=== PATIENT | female | born 1955 | race African-American/Black ===

== ENCOUNTER 2016-08-28 11:56 | Inpatient (IN) ==
[2016-08-28] MEDS ORDERED: SODIUM CHLORIDE 0.9% 1,000 ML IV STA (12:18)
[2016-08-28] MEDS ORDERED: ONDANSETRON 4 MG/2 ML VIAL IV STA (12:26)
[2016-08-28] MEDS ORDERED: HYDROmorphone 2 MG/1 ML VIAL IV STA (12:26)
--- NOTE | 2016-08-28 12:46 | XRay Report ---
XR abdomen 2V Indication: Abdominal pain. Abdomen 3 views: No small bowel dilatation. Some stool projects over the colon. No evidence of free air. No abnormal calcifications or masses. There are some phleboliths in the pelvis. Surgical clips right midabdomen noted. Impression: No acute pathology identified. PROCEDURE INTERPRETED AT [facility] DEPARTMENT OF RADIOLOGY Final Report Signed by: Henrique Terrell M.D.
--- NOTE | 2016-08-28 12:47 | XRay Report ---
XR chest 1V portable Indication: Abdominal pain. Chest one view: Comparison 10/28/2015. The heart size and mediastinal contour are normal. The lungs and pleural spaces are clear. Bones are unremarkable. Impression: Negative chest. PROCEDURE INTERPRETED AT [facility] DEPARTMENT OF RADIOLOGY Final Report Signed by: Henrique Terrell M.D.
[2016-08-28 12:52] LABS: Basophils % 0.6 % (0.0-0.8); Eosinophils # 0.1 10*3/uL (0.0-0.87); Eosinophils % 1.1 % (0.00-10.9); Hematocrit 34.7 VOL% (35.7-47.0); Hemoglobin 12.2 GM/DL (12.0-16.0); Immature Granulocytes % 0.4 %; Immature Granulocytes Absolute 0.02 #; Lymphocytes # 1.9 10*3/uL (1.4-4.0); Lymphocytes % 35.4 % (21.3-54.2); Mean Corpuscular HGB Conc 35.2 GM/DL (32-36); Mean Corpuscular Hemoglobin 30 PG (27-34); Mean Corpuscular Volume 83.8 FL (87-102); Mean Platelet Volume 8.9 FL (9.6-12.0); Monocytes # 0.4 10*3/uL (0.11-0.8); Monocytes % 6.7 % (1.7-12.7); Neutrophils # 2.9 10*3/uL (1.4-7.4); Neutrophils % 55.8 % (38.7-73.9); Platelet Count 235 T/CUMM (130-400); Red Blood Count 4.14 MC/CUMM (3.8-5.5); Red Cell Distribution Width 12.3 % (9.3-17.3); White Blood Count 5.2 T/CUMM (4-12)
[2016-08-28 12:57] LABS: Apearance,Urine CLEAR (Clear); Bilirubin,Urine Negative (Negative); Blood, Urine Negative (Negative); Glucose,Urine (UA) Negative (Negative); Ketones,Urine Negative (Negative); Mucus,Urine Occasional /LPF (Occasional); Nitrite,Urine Negative (Negative); Protein,Urine Negative; RBC,Urine 2 /HPF (0-4); Squamous Epithelial Cell,Urine Occasional /HPF (0-10); Urine Color Yellow (Yellow); Urine Specific Gravity 1.008 (1.001-1.035); Urine Urobilinogen < 2.0 EU/DL (0.2-1.0); WBC,Urine <1 /HPF (0-6)
--- NOTE | 2016-08-28 13:01 | EKG Report ---
Stationary ECG Study [facility] ER Test Date: 08/28/2016 12:59:36 PM Pat Name: WESLEY FORMAN Department: Room: Gender: F Rehab Nurse: : 1955 Requested by: Emery Ulrich Order Number: [id number] Reading MD: TIM ROBIN Intervals [place] Rate: 59 P: 83 TN: 190 QRS: 82 QRSD: 90 T: 46 QT: 412 QTc: 411 Interpretive Statements SINUS RHYTHM Electronically Signed On 08-29-16 08:05:04 CDT by TIM ROBIN [email or web address]
--- NOTE | 2016-08-28 13:02 | Emergency Department Note ---
Davion Barrientos Brooke, am scribing for, and in the presence of, Emery Wen MD 12:32 . Bettye Barrientos James D, MD, personally performed the services described in this documentation, ascribed by Kelsy Ricardo in my presence, and it is both accurate and complete . Arrival - Arrival Chief Complaint: Abdominal / Flank Pain Stated Complaint: fell bad/nauseated/morrell/faint/chills ED Nursing Triage Note: C/O Having nausea, + diarrrhea, + abdeomen pain today., + chills., states all this started this am when woke up this am ., pain worse on the right side of the upper abdomen Mode of Arrival: Ambulatory Limitations: No Limitations Source: Patient, RN Notes Reviewed Time Seen by Provider: 08/28/16 12:17 - History of Present Illness HPI Narrative: Patient is a 61 year old female who presents to the ED with c/o abdominal pain, nausea, vomiting, and diarrhea. Patient says these symptoms started, suddenly, around 0740 this morning. The abdominal pain is located across the top and she says there is sometimes a burning sensation that goes up into her chest. The abdominal pain is worsened with movement. Her last bowel movement was this morning and she denies any melena. She has vomited two times and denies any blood in the vomit. Patient also complains of having chills but denies any fever or dysuria. She has PMHx of CHF, HTN, NJ, TIA, dyslipidemia, NIDDM, bronchitis, COPD, GERD, and back/neck problems. Patient says she had surgery, at [facility], to remove something from her liver and kidney.The pain she is having today does not feel like the pain she had with the NJ. Patient's Primary Care Provider is Dr. Luciano. She is a smoker and says a pack of cigarettes will last about two days. Patient does not drink alcohol. Onset (ago): hour(s) (5) Allergies/Adverse Reactions: Allergies Allergy/AdvReac Type Severity Reaction Status Date / Time Penicillins Allergy RASH Verified 08/28/16 12:02 Sulfa (Sulfonamide Allergy RASH Verified 08/28/16 12:02 Antibiotics) Home Medications: Home Medications Medication Instructions Recorded Confirmed Type Albuterol Sulfate [Ventolin HFA] 2 puff INH Q4H PRN 10/28/15 10/28/15 History Fluticasone/Salmeterol [Advair Hfa 8 gm IH Q4H PRN 10/28/15 10/28/15 History 230-21 Mcg Inhaler] Omeprazole [Prilosec] 20 mg PO BID 10/28/15 10/28/15 History Oxybutynin Xl [Ditropan Xl] 10 mg PO DAILY 10/28/15 10/28/15 History Propranolol Tab [Inderal Tab] 40 mg PO BID 10/28/15 10/28/15 History Tolterodine LA [Detrol LA] 4 mg PO BID 10/28/15 10/28/15 History cephALEXin [Keflex] 500 mg PO Q8HR #30 capsule 06/06/16 Rx predniSONE TAB [PredniSONE] 10 mg PO DAILY #5 tablet 06/06/16 Rx Review of System - Review of System 12 point system: reviewed and no additional remarkable complaints except as stated - Review of System Constitutional: Present: chills. Absent: fever Respiratory: Absent: respiratory distress Gastrointestinal: Present: abdominal pain (upper), nausea, vomiting, diarrhea. Absent: hematemesis, melena Genitourinary female: Absent: dysuria Skin: Absent: rash Medical,Surgical,& Family Hx - Medical History Cardio: History of: CHF, Hypertension, NJ (1.5 year ago) Neurology: History of: TIA No history of: Seizures Endocrine: History of: Diabetes Mellitus (NIDDM) (diet controlled), Dyslipidemia Respiratory: History of: Bronchitis, COPD Gastrointestinal: History of: GERD Musculoskeletal: History of: Back/Neck Problems, Musculoskeletal Problems (mass on her spine) - Surgical History HEENT Surgeries: Surgical HX of: Tonsilectomy & Adenoidectomy Reproductive Surgeries: Surgical HX of;: Breast Surgery, Hysterectomy - Family History Family History: Reports;: Family Cancer, Family Diabetes, Family Heart Disease, Family Hypertension, Family Stroke - Social History Smoking Status: Smoker, status unknown Frequency of Alcohol Use: None Type of Drug Use: None Exam Vital Signs: Vital Signs Temperature 97.4 F L 08/28/16 11:59 Pulse Rate 16 L 08/28/16 11:59 Respiratory Rate 16 08/28/16 11:59 Blood Pressure 168/59 08/28/16 11:59 O2 Sat by Pulse Oximetry 97 08/28/16 11:59 GENERAL: This is a well-nourished well-developed black female in no apparent distress. VITAL SIGNS: Reviewed HEENT: Head is atraumatic and normocephalic. Pupils are equal round react to light. Extraocular movements are intact. Oropharynx is benign with moist mucous membranes. NECK: Neck is soft and supple without tenderness. There are no masses. There is no lymphadenopathy. LUNGS: Lungs are clear to auscultation. Chest rises symmetrically. There is no chest wall tenderness. CV: Heart is regular rate and rhythm without murmurs rubs or gallops. ABDOMEN: Tender to palpation epigastrium without rebound or guarding. There are no abdominal abnormal masses palpated. There is no organomegaly. Bowel sounds are present and active. SKIN: Skin is warm and dry. No rash. EXTREMITIES: Patient has full range of motion without tenderness. There is no pedal edema. NEUROLOGIC: Awake alert and oriented 4. Cranial nerves II through XII are grossly intact. Motor is 5 over 5 in all extremities bilaterally. Course - Consultations Consultation #1: Discussed with Dr. Zafar ORDOÑEZ. Patient will be admitted to his service. Time: 16:00 Results - Labs CBC & BMP: 08/28/16 12:18 08/28/16 12:18 Lab Results: I have reviewed the patients labs - EKG EKG results: interpreted by ERMD - Impressions EKG: Sinus bradycardia with a rate of 59, normal ST-T waves, normal axis. - Diagnostic Findings Procedure: Abdominal x-ray: image reviewed by me (No free air, gas in the rectum , nonspecific gas pattern.), Chest x-ray: image reviewed by me (No infiltrates, no pleural effusions. No cardiomegaly.), Ultrasound: report reviewed by me ( Gallbladder ultrasound: Cholelithiasis with positive Holt sign consistent with acute cholecystitis.) Disposition Clinical Impression: Epigastric pain, Acute cholecystitis Case discussed with: patient Disposition: Still a Patient Condition: Stable
[2016-08-28 13:10] LABS: Alanine Aminotransferase 17 U/L (13-56); Albumin 3.6 G/DL (3.4-5.0); Alkaline Phosphatase 115 U/L (45-117); Aspartate Amino Transferase 13 U/L (0-37); Bilirubin,Total < 0.39 MG/DL (0.2-1.0); Blood Urea Nitrogen 7 MG/DL (7-18); Calcium 8.9 MG/DL (8.5-10.1); Glucose 94 MG/DL (74-106); Osmolality,Calculated 283.8 MOS/KG (273-304); Sodium 144 MMOL/L (136-145); Total Protein 6.7 G/DL (6.4-8.3)
[2016-08-28] MEDS ORDERED: HYDROmorphone 2 MG/1 ML VIAL ONE (13:20)
[2016-08-28] MEDS ORDERED: ONDANSETRON 4 MG/2 ML VIAL ONE (13:20)
--- NOTE | 2016-08-28 14:20 | CT Report ---
CT abdomen pelvis w con Indication: Epigastric abdominal pain. CT ABDOMEN AND PELVIS WITH CONTRAST DLP: 901 mGy*cm. One or more of the following dose reduction techniques was used: Automated exposure control, adjustment of the mA and/or kV according the patient size, or use of iterative reconstruction techniques. Comparison: 01/22/2015 Technique: Axial CT images of the abdomen and pelvis were obtained with IV contrast; Omnipaque 350, 100 cc. Oral contrast was not administered. Abdomen: Normal heart size. Bibasilar scarring. Liver has a slightly nodular contour but no focal lesion is identified. Gallbladder, spleen, pancreas, and left adrenal gland are unremarkable. 8 mm hypodensity left kidney, likely a cyst. Surgical clips right adrenal fossa and superior cortex the right kidney indicating previous surgery, stable from prior study. No bowel obstruction. No free fluid, free air or lymphadenopathy. Pelvis: Appendix not seen. No right lower quadrant inflammation. Urinary bladder and rectosigmoid colon are within normal limits. Trace amount of ascites in the deep pelvis noted. Uterus is absent. 43 mm soft tissue density in the left pelvis previously measured 36 mm. Impression: 1. No acute intra-abdominal or pelvic pathology. 2. 43 mm soft tissue density left pelvis measured 36 mm 18 months ago. Suspect this is ovarian. Consider MRI pelvis with further evaluation is necessary. 3. Slightly nodular liver contour appears new. No focal lesion. 4. Status post right adrenalectomy and surgical changes at the upper pole right kidney. PROCEDURE INTERPRETED AT [facility] DEPARTMENT OF RADIOLOGY Final Report Signed by: Henrique Terrell M.D.
--- NOTE | 2016-08-28 15:38 | Ultrasound Report ---
US gallbladder Indication: Epigastric abdominal pain. ULTRASOUND ABDOMEN, limited Comparison: None Findings: Liver: Unremarkable multiple mobile gallstones are present. Gallbladder wall is not thickened and there is no pericholecystic fluid. However, positive sonographic Holt's Gallbladder: Sinus present. Common bile duct: 4 mm Pancreas: Unremarkable Right kidney: 10.4 cm length. No mass, cyst, calcification or obstruction Impression: Cholelithiasis with positive sonographic Holt sign, an ancillary findings suggesting acute cholecystitis. PROCEDURE INTERPRETED AT [facility] DEPARTMENT OF RADIOLOGY Final Report Signed by: Henrique Terrell M.D.
[2016-08-28] MEDS ORDERED: HYDROmorphone 2 MG/1 ML VIAL IV PRN (17:04)
[2016-08-28] MEDS ORDERED: ACETAMINOPHEN 325 MG TABLET PO PRN (17:04)
[2016-08-28] MEDS ORDERED: ONDANSETRON 4 MG/2 ML VIAL IV PRN (17:04)
[2016-08-28] MEDS ORDERED: LEVOFLOXACIN INJ 750 MG in PREMIX 1 EACH IV SCH (17:04)
[2016-08-28] MEDS: LACTATED RINGERS 1,000 ML IV SCH (18:10)
[2016-08-28] MEDS: metroNIDAZOLE INJ 500 MG in PREMIX 1 EACH IV SCH (18:10)
[2016-08-29] MEDS: metroNIDAZOLE INJ 500 MG in PREMIX 1 EACH IV SCH ×2 (01:35→09:28)
[2016-08-29] MEDS: LACTATED RINGERS 1,000 ML IV SCH ×2 (05:17→09:28)
[2016-08-29 07:51] VITALS: BP 125/63
--- NOTE | 2016-08-29 08:12 | General Surg History&Physical ---
Assessment and Plan - Time spent with patient Time spent with patient: Greater than 30 minutes (1) Acute cholecystitis Status: Acute Assessment and plan: I have recommended cholecystectomy. I have explained that there is not an effective medical treatment for her problem. She feels better and her abdominal pain is essentially resolved with fluids and antibiotics overnight. I have recommended surgery and offered to do it today and she has declined. She wants to go home and think about it. We discussed procedure in detail along with the risks including increased risk of conversion to open procedure because of her previous right upper quadrant surgery in the past. We also discussed the risk of infection bleeding, bile leaks, injury to other organs, etc. She understands these risks and is not willing to consent to surgery at this time. I have also expressed willingness to keep her in the hospital and let her think about it for a little while longer and maybe do it tomorrow. She wants to go home today and says she will follow-up with me in the office. Current Visit: Yes (2) Ovarian mass Status: Acute Assessment and plan: I discussed the findings seen on CT scan with her and she says that she knows about this and is seen Dr. Edwards for and he is following her for it. I do not have these records. I have offered further workup. She wants to go home and deal with these issues as an outpatient. Current Visit: Yes History of Present Illness Chief complaint: Abdominal pain History of present illness: Ms. Patton is a 61 year old female Who began having intermittent right upper quadrant and epigastric pain radiating to her back about 4 days ago. This pain was severe and intermittent and accompanied by nausea. This is worse with meals. The pain became constant yesterday and she came to the emergency department. A ultrasound was done which showed gallstones and tenderness over the gallbladder. There were no inflammatory changes or wall thickening. She had an abdominal CT scan done as well which was negative other than a mass in the pelvis which was thought to be of ovarian origin. I discussed this with the patient and she said this was an old finding and she is being followed by Dr. Kwong for this. She was admitted with epigastric pain back in October and had a cardiac workup which was negative and had a Dali scan which was low risk with Dr. Urrutia. Home Medications Medication Instructions Recorded Confirmed Type Albuterol Sulfate [Ventolin HFA] 2 puff INH Q4H PRN 10/28/15 08/28/16 History Fluticasone/Salmeterol [Advair Hfa 8 gm IH Q4H PRN 10/28/15 08/28/16 History 230-21 Mcg Inhaler] Oxybutynin Xl [Ditropan Xl] 10 mg PO DAILY 10/28/15 08/28/16 History Propranolol Tab [Inderal Tab] 40 mg PO BID 10/28/15 08/28/16 History Tolterodine LA [Detrol LA] 4 mg PO BID 10/28/15 08/28/16 History Lisinopril [Lisinopril] 1 tablet PO DAILY 08/28/16 08/28/16 History Rabeprazole Sodium [Aciphex Tab] 20 mg PO DAILY 08/28/16 08/28/16 History predniSONE TAB [PredniSONE] 1 tablet PO DAILY 08/28/16 08/28/16 History Allergies Allergy/AdvReac Type Severity Reaction Status Date / Time Penicillins Allergy RASH Verified 08/28/16 12:02 Sulfa (Sulfonamide Allergy RASH Verified 08/28/16 12:02 Antibiotics) Medical,Surgical,& Family Hx - Medical History Cardio: History of: CHF, Hypertension, [place] (1.5 year ago) Neurology: History of: TIA (2016) No history of: Seizures Endocrine: History of: Diabetes Mellitus (NIDDM) (diet controlled), Dyslipidemia Respiratory: History of: Asthma, Bronchitis, COPD Gastrointestinal: History of: GERD, GI Problems (mass on pancrease) Musculoskeletal: History of: Back/Neck Problems, Musculoskeletal Problems (mass on her spine) - Surgical History HEENT Surgeries: Surgical HX of: Tonsilectomy & Adenoidectomy Abdominal Surgeries: Surgical HX of: Abdominal Surgery (Right adrenalectomy) Reproductive Surgeries: Surgical HX of;: Breast Surgery, Hysterectomy - Family History Family History: Reports;: Family Cancer, Family Diabetes, Family Heart Disease, Family Hypertension, Family Stroke - Social History Smoking Status: Smoker, status unknown Frequency of Alcohol Use: None Type of Drug Use: None Exam - Constitutional Vitals: Period Temp Pulse Resp BP Sys/Negron Pulse Ox Last 24 Hr 96.7 F-97.9 F 16-74 16-20 120-168/43-72 97-99 General appearance: no acute distress - Head Head exam: Present: normocephalic - Eye Eye exam: Absent: scleral icterus Pupils: Present: BRANDY - ENT Mouth exam: Present: normal voice - Neck Neck exam: Present: trachea midline. Absent: tenderness, thyromegaly - Respiratory Respiratory exam: Present: clear to auscultation bilaterally. Absent: accessory muscle use - Cardiovascular Cardiovascular exam: Present: RRR - GI/Abdominal GI/Abdominal exam: Present: soft, other (Right upper quadrant subcostal incision ). Absent: distended, guarding, mass, Holt's sign, tenderness, rebound - Extremities Exam Extremities exam: Absent: edema - Neurological Exam Neurological exam: Present: alert, oriented X3. Absent: motor sensory deficit Speech: Present: normal - Skin Skin exam: Present: normal color - Constitutional Constitutional: Absent: anorexia, chills, fever(s), weight loss - Cardiovascular Cardiovascular: Absent: chest pain at rest, chest pain with activity, dyspnea, dyspnea on exertion - Respiratory Respiratory: Absent: cough, dyspnea, hemoptysis, dyspnea on exertion - Gastrointestinal Gastrointestinal: Present: abdominal pain, nausea. Absent: hematemesis, hematochezia, vomiting, jaundice - Musculoskeletal Musculoskeletal: Present: back pain - Neurological Neurological: Absent: focal weakness, syncope Results - Labs CBC & BMP: 08/28/16 12:18 08/28/16 12:18 Lab Results: I have reviewed the past 24 hour labs - Diagnostic Findings Procedure: CT Abdomen and Pelvis: report reviewed by me, Ultrasound: report reviewed by me
--- NOTE | 2016-08-29 08:18 | Discharge Summary ---
Hospital Course - Hospital Course Hospital Course: Patient was admitted with cholelithiasis and acute cholecystitis and placed on IV fluids and IV antibiotics overnight plans to do a cholecystectomy this morning. Patient has declined surgery. She feels better and wants to go home. I discussed her diagnosis with her and also the finding of possible ovarian mass which she says is a long-standing problem this is being followed by Dr. Edwards with [facility]. I have offered to do surgery today and she has declined. She wants to go home and see how she does and follow-up with me in the office. She is agreed to see me in the office in 1 week or come back sooner if she has any further problems. Diagnosis - Discharge Diagnosis (1) Acute cholecystitis Status: Acute (2) Ovarian mass Status: Acute Discharge Plan - Discharge Data Disposition: Disch To Home/Self Care Condition at Discharge: Stable Discharge Diet: advance to your usual diet Activity: resume usual activities as tolerated - Discharge Medications No Action Tolterodine LA [Detrol LA] 4 mg PO BID Albuterol Sulfate [Ventolin HFA] 2 puff INH Q4H PRN PRN Reason: Shortness Of Breath/Wheezing Propranolol Tab [Inderal Tab] 40 mg PO BID Oxybutynin Xl [Ditropan Xl] 10 mg PO DAILY Fluticasone/Salmeterol [Advair Hfa 230-21 Mcg Inhaler] 8 gm IH Q4H PRN PRN Reason: Shortness Of Breath Rabeprazole Sodium [Aciphex Tab] 20 mg PO DAILY Lisinopril [Lisinopril] 1 tablet PO DAILY predniSONE TAB [PredniSONE] 1 tablet PO DAILY - Follow Up or Referral Follow Up: Haroon Stephen III., MD [Physician] - 1 Week - Forms/Instructions Exam - Constitutional Vitals: Period Temp Pulse Resp BP Sys/Negron Pulse Ox Last 24 Hr 96.7 F-97.9 F 16-74 16-20 120-168/43-72 97-99 Discharge Results Labs on day of discharge: Labs from last 24 hours 08/28/16 08/28/16 08/28/16 12:18 12:18 12:18 WBC RBC Hgb Hct MCV MCH MCHC RDW Plt Count MPV Neut % (Auto) Lymph % (Auto) [place] % (Auto) Eos % (Auto) Baso % (Auto) Neut # (Auto) Lymph # (Auto) [place] # (Auto) Eos # (Auto) Baso # (Auto) Immature Gran % Nucleated RBC % Immature Gran # Nucleated RBCs # Sodium 144 Potassium 4.0 Chloride 110 H Carbon Dioxide 27 Anion Gap 11.0 BUN 7 Creatinine 0.70 GFR Calculation 117 BUN/Creatinine Ratio 10.00 Glucose 94 Calculated Osmolality 283.8 Calcium 8.9 Total Bilirubin < 0.39 AST 13 ALT 17 Alkaline Phosphatase 115 Troponin I < 0.015 Total Protein 6.7 Albumin 3.6 Globulin 3.1 Albumin/Globulin Ratio 1.1 Lipase 60.0 L Urine Color Yellow Urine Appearance Clear Urine pH 7.0 Ur Specific [place] 1.008 Urine Protein Negative Urine Glucose (UA) Negative Urine Ketones Negative Urine Blood Negative Urine Nitrate Negative Urine Bilirubin Negative Urine Urobilinogen < 2.0 H Urine Leukocytes Negative Urine RBC 2 Urine WBC <1 Ur Squamous Epith Cells Occasional Urine Mucus Occasional Ur Culture Indicated? Not indicated 08/28/16 12:18 WBC 5.2 RBC 4.14 Hgb 12.2 Hct 34.7 L MCV 83.8 L MCH 30 MCHC 35.2 RDW 12.3 Plt Count 235 MPV 8.9 L Neut % (Auto) 55.8 Lymph % (Auto) 35.4 [place] % (Auto) 6.7 Eos % (Auto) 1.1 Baso % (Auto) 0.6 Neut # (Auto) 2.9 Lymph # (Auto) 1.9 [place] # (Auto) 0.4 Eos # (Auto) 0.1 Baso # (Auto) 0.0 Immature Gran % 0.4 Nucleated RBC % 0.0 Immature Gran # 0.02 Nucleated RBCs # 0.00 Sodium Potassium Chloride Carbon Dioxide Anion Gap BUN Creatinine GFR Calculation BUN/Creatinine Ratio Glucose Calculated Osmolality Calcium Total Bilirubin AST ALT Alkaline Phosphatase Troponin I Total Protein Albumin Globulin Albumin/Globulin Ratio Lipase Urine Color Urine Appearance Urine pH Ur Specific [place] Urine Protein Urine Glucose (UA) Urine Ketones Urine Blood Urine Nitrate Urine Bilirubin Urine Urobilinogen Urine Leukocytes Urine RBC Urine WBC Ur Squamous Epith Cells Urine Mucus Ur Culture Indicated? DS: Provider Date of admission: 08/28/16 16:03 Primary care physician: Javier Luciano DO Attending physician on admission: Haroon Stephen III., Consults: 08/28/16 18:27 Consult to Dietitian [CONS] Routine Reason for Dietitian: Other Consult Comment: ADMISSION Discharging clinician: Haroon Stephen III.,
[2016-08-29] MEDS ORDERED: PANTOPRAZOLE 40 MG TABLET PO SCH (09:00)
== END 2016-08-29 09:33 | disposition home or self-care (01) | DRG 446 ==
LOC: N.ED 11:56 → N.EDINP 16:03 → N.3E 17:03
PROVIDERS: ADMIT Surgery; ATTEND Surgery

== ENCOUNTER 2019-01-12 11:46 | Inpatient (IN) ==
[2019-01-12] MEDS ORDERED: ACETAMINOPHEN 325 MG TABLET PO PRN (11:56)
[2019-01-12 13:51] LABS: Basophils % 0.6 % (0.0-0.8); Eosinophils # 0.2 10*3/uL (0.0-0.87); Eosinophils % 2.1 % (0.00-10.9); Hematocrit 37.3 VOL% (35.7-47.0); Hemoglobin 12.4 GM/DL (12.0-16.0); Immature Granulocytes % 0.1 %; Immature Granulocytes Absolute 0.01 #; Lymphocytes # 3.7 10*3/uL (1.4-4.0); Lymphocytes % 51.5 % (21.3-54.2); Mean Corpuscular HGB Conc 33.2 GM/DL (32-36); Mean Corpuscular Volume 87.8 FL (87-102); Mean Platelet Volume 8.6 FL (9.6-12.0); Monocytes % 5.6 % (1.7-12.7); Neutrophils % 40.1 % (38.7-73.9); Platelet Count 236 T/CUMM (130-400); Red Blood Count 4.25 MC/CUMM (3.8-5.5); Red Cell Distribution Width 12.4 % (9.3-17.3); White Blood Count 7.1 T/CUMM (4-12)
[2019-01-12] MEDS: SODIUM CHLORIDE 0.9% 1,000 ML IV SCH (13:51)
[2019-01-12] MEDS ORDERED: DEXTROSE 50% 25 GM/50 ML VIAL IV PRN (13:53)
[2019-01-12] MEDS ORDERED: GLUCAGON 1 MG VIAL IM PRN (13:53)
[2019-01-12] MEDS: MORPHINE 4 MG/1 ML VIAL IV PRN (13:57)
[2019-01-12 14:06] LABS: Alanine Aminotransferase 12 U/L (13-56); Albumin 3.5 G/DL (3.4-5.0); Alkaline Phosphatase 120 U/L (45-117); Aspartate Amino Transferase 11 U/L (0-37); Bilirubin,Total < 0.39 MG/DL (0.2-1.0); Blood Urea Nitrogen 9 MG/DL (7-18); Calcium 8.8 MG/DL (8.5-10.1); Glucose 92 MG/DL (74-106); Total Protein 7.2 G/DL (6.4-8.3)
[2019-01-12 14:07] LABS: Estimated Glom Filtration Rate 0 ML/MIN
[2019-01-12] MEDS: CIPROFLOXACIN INJ 400 MG in PREMIX 1 EACH IV SCH (15:30)
[2019-01-12] MEDS: INSULIN LISPRO 100 UNIT/ML SUBCUT SCH ×2 (16:29→20:25)
[2019-01-13] MEDS ORDERED: methylPREDNISolone SOD SUC 40 MG/1 ML VIAL IV ONE (02:00)
[2019-01-13] MEDS: CIPROFLOXACIN INJ 400 MG in PREMIX 1 EACH IV SCH ×2 (03:31→15:31)
[2019-01-13 04:47] LABS: Basophils % 0.6 % (0.0-0.8); Eosinophils # 0.2 10*3/uL (0.0-0.87); Eosinophils % 3.4 % (0.00-10.9); Immature Granulocytes % 0.4 %; Immature Granulocytes Absolute 0.02 #; Lymphocytes # 2.9 10*3/uL (1.4-4.0); Lymphocytes % 54.1 % (21.3-54.2); Mean Corpuscular HGB Conc 33.3 GM/DL (32-36); Mean Corpuscular Volume 86.4 FL (87-102); Mean Platelet Volume 8.8 FL (9.6-12.0); Monocytes % 6.7 % (1.7-12.7); Neutrophils % 34.8 % (38.7-73.9); Platelet Count 214 T/CUMM (130-400); Red Blood Count 3.82 MC/CUMM (3.8-5.5); Red Cell Distribution Width 12.4 % (9.3-17.3); White Blood Count 5.3 T/CUMM (4-12)
[2019-01-13 05:03] LABS: Calcium 8.6 MG/DL (8.5-10.1); Osmolality,Calculated 289.4 MOS/KG (273-304)
[2019-01-13 05:16] LABS: Atypical Lymphocytes Few; Eosinophils 1 % (0-10); Hypochromasia 1+; Lymphocytes 51 % (20-55); Microcytosis Slight; Platelet Estimate Normal; Segmented Neutrophils 42 % (50-85); Target Cells Slight; Total Cells Counted 100
[2019-01-13 07:30] LABS: Alanine Aminotransferase 12 U/L (13-56); Albumin 2.9 G/DL (3.4-5.0); Alkaline Phosphatase 93 U/L (45-117); Aspartate Amino Transferase 9 U/L (0-37); Bilirubin,Direct < 0.100 MG/DL (0.0-0.20); Bilirubin,Indirect 0.3 MG/DL (0.0-1.0); Bilirubin,Total < 0.39 MG/DL (0.2-1.0); Total Protein 6.1 G/DL (6.4-8.3)
[2019-01-13] MEDS: INSULIN LISPRO 100 UNIT/ML SUBCUT SCH ×4 (07:40→21:14)
[2019-01-13] MEDS: SODIUM CHLORIDE 0.9% 1,000 ML IV SCH (13:03)
[2019-01-13] MEDS ORDERED: CLINDAMYCIN INJ 900 MG in PREMIX 1 EACH IV ONE (14:58)
[2019-01-14] MEDS: SODIUM CHLORIDE 0.9% 1,000 ML IV SCH ×2 (00:43→04:44)
[2019-01-14] MEDS: CIPROFLOXACIN INJ 400 MG in PREMIX 1 EACH IV SCH ×2 (02:11→15:24)
[2019-01-14 05:08] LABS: Basophils % 0.3 % (0.0-0.8); Eosinophils # 0.1 10*3/uL (0.0-0.87); Eosinophils % 0.6 % (0.00-10.9); Hematocrit 30.3 VOL% (35.7-47.0); Hemoglobin 10.4 GM/DL (12.0-16.0); Immature Granulocytes % 0.1 %; Immature Granulocytes Absolute 0.01 #; Lymphocytes # 3.6 10*3/uL (1.4-4.0); Lymphocytes % 40.7 % (21.3-54.2); Mean Corpuscular HGB Conc 34.3 GM/DL (32-36); Mean Corpuscular Volume 85.8 FL (87-102); Mean Platelet Volume 9.1 FL (9.6-12.0); Monocytes % 7.6 % (1.7-12.7); Neutrophils % 50.7 % (38.7-73.9); Platelet Count 209 T/CUMM (130-400); Red Blood Count 3.53 MC/CUMM (3.8-5.5); Red Cell Distribution Width 12.3 % (9.3-17.3); White Blood Count 8.9 T/CUMM (4-12)
[2019-01-14 05:56] LABS: Calcium 8.3 MG/DL (8.5-10.1); Osmolality,Calculated 285.7 MOS/KG (273-304)
[2019-01-14] MEDS: INSULIN LISPRO 100 UNIT/ML SUBCUT SCH ×4 (09:02→20:46)
[2019-01-14] MEDS: diphenhydrAMINE CAP 25 MG CAPSULE PO PRN (15:25)
[2019-01-15] MEDS: CIPROFLOXACIN INJ 400 MG in PREMIX 1 EACH IV SCH ×2 (02:01→14:35)
[2019-01-15 04:56] LABS: Basophils % 0.5 % (0.0-0.8); Eosinophils # 0.1 10*3/uL (0.0-0.87); Eosinophils % 1.9 % (0.00-10.9); Hematocrit 31.7 VOL% (35.7-47.0); Hemoglobin 10.6 GM/DL (12.0-16.0); Immature Granulocytes % 0.3 %; Immature Granulocytes Absolute 0.02 #; Lymphocytes # 3.6 10*3/uL (1.4-4.0); Lymphocytes % 47.7 % (21.3-54.2); Mean Corpuscular HGB Conc 33.4 GM/DL (32-36); Mean Corpuscular Volume 86.6 FL (87-102); Mean Platelet Volume 9.1 FL (9.6-12.0); Monocytes % 7.7 % (1.7-12.7); Neutrophils % 41.9 % (38.7-73.9); Platelet Count 207 T/CUMM (130-400); Red Blood Count 3.66 MC/CUMM (3.8-5.5); Red Cell Distribution Width 12.4 % (9.3-17.3); White Blood Count 7.5 T/CUMM (4-12)
[2019-01-15 05:15] LABS: Calcium 8.4 MG/DL (8.5-10.1); Osmolality,Calculated 290.4 MOS/KG (273-304)
[2019-01-15] MEDS ORDERED: ALBUTEROL/IPRATROPIUM 3 ML NEB RESP TX ONE (07:00)
[2019-01-15] MEDS: SODIUM CHLORIDE 0.9% 1,000 ML IV SCH ×2 (07:42)
[2019-01-15] MEDS: INSULIN LISPRO 100 UNIT/ML SUBCUT SCH ×4 (07:46→20:13)
[2019-01-15] MEDS: MORPHINE 4 MG/1 ML VIAL IV PRN (08:50)
[2019-01-15 11:37] LABS: Alanine Aminotransferase 13 U/L (13-56); Albumin 2.9 G/DL (3.4-5.0); Alkaline Phosphatase 90 U/L (45-117); Aspartate Amino Transferase 9 U/L (0-37); Bilirubin,Direct < 0.100 MG/DL (0.0-0.20); Bilirubin,Indirect 0.3 MG/DL (0.0-1.0); Bilirubin,Total < 0.39 MG/DL (0.2-1.0); Total Protein 5.9 G/DL (6.4-8.3)
[2019-01-15] MEDS: diphenhydrAMINE CAP 25 MG CAPSULE PO PRN (14:38)
[2019-01-15] MEDS: PROPRANOLOL 40 MG TABLET PO SCH (20:33)
[2019-01-15] MEDS: TOLTERODINE LA 4 MG CAPSULE PO SCH (20:34)
[2019-01-15] MEDS: POTASSIUM CHLORIDE RIDER 10 MEQ in PREMIX 1 EACH IV SCH ×2 (20:34→22:59)
[2019-01-15] MEDS ORDERED: FLUTICASONE/SALMETEROL 250-50 DISKUS 14 DOSE INH PRN (21:00)
[2019-01-15] MEDS: SODIUM CHLOR 0.9% KCL 20 MEQ 20 MEQ/1,000 ML BAG IV SCH (22:58)
[2019-01-16] MEDS: CIPROFLOXACIN INJ 400 MG in PREMIX 1 EACH IV SCH ×2 (03:07→15:45)
[2019-01-16 04:30] LABS: Basophils % 0.7 % (0.0-0.8); Eosinophils # 0.2 10*3/uL (0.0-0.87); Eosinophils % 3.3 % (0.00-10.9); Hemoglobin 10.7 GM/DL (12.0-16.0); Immature Granulocytes % 0.2 %; Immature Granulocytes Absolute 0.01 #; Lymphocytes % 48.1 % (21.3-54.2); Mean Corpuscular HGB Conc 33.4 GM/DL (32-36); Mean Platelet Volume 9.1 FL (9.6-12.0); Neutrophils % 39.7 % (38.7-73.9); Platelet Count 195 T/CUMM (130-400); Red Blood Count 3.68 MC/CUMM (3.8-5.5); Red Cell Distribution Width 12.5 % (9.3-17.3); White Blood Count 6.1 T/CUMM (4-12)
[2019-01-16 04:54] LABS: Ferritin 52.9 ng/ml (8-252); Risk Ratio 2.37; Thyroid Stimulating Hormone 5.17 uIU/ml (0.358-3.74); VLDL CHOLESTEROL 15.6 MG/DL
[2019-01-16 04:58] LABS: Bilirubin,Total 0.5 MG/DL (0.2-1.0); Calcium 8.3 MG/DL (8.5-10.1); Osmolality,Calculated 285.7 MOS/KG (273-304)
[2019-01-16] MEDS ORDERED: MAGNESIUM SULF RIDER 2 GM in PREMIX 1 EACH IV ONE (07:59)
[2019-01-16] MEDS: INSULIN LISPRO 100 UNIT/ML SUBCUT SCH ×4 (09:16→21:04)
[2019-01-16] MEDS ORDERED: BUPIVACAINE MPF 0.25% 30 ML VIAL ONE (13:24)
[2019-01-16] MEDS ORDERED: TISSUE ADHESIVE 1 EACH APPLICATOR TOP ONE (13:24)
[2019-01-16] MEDS ORDERED: LIDOCAINE 1%/EPI INJ 20 ML VIAL ONE (13:24)
[2019-01-16] MEDS ORDERED: ceFAZolin 1,000 MG VIAL ONE (13:34)
[2019-01-16] MEDS ORDERED: CLINDAMYCIN INJ 50 ML IV ONE (13:36)
[2019-01-16] MEDS: SODIUM CHLOR 0.9% KCL 20 MEQ 20 MEQ/1,000 ML BAG IV SCH ×2 (15:43→23:59)
[2019-01-16] MEDS: PROPRANOLOL 40 MG TABLET PO SCH ×2 (15:43→21:03)
[2019-01-16] MEDS: TOLTERODINE LA 4 MG CAPSULE PO SCH ×2 (15:43→21:03)
[2019-01-16] MEDS ORDERED: SEVOFLURANE 1 UNIT/15 MINUTE INH ONE (16:55)
[2019-01-16] MEDS ORDERED: MIDAZOLAM 2 MG/2 ML VIAL ONE (16:55)
[2019-01-16] MEDS ORDERED: PROPOFOL 200 MG/20 ML VIAL IV ONE (16:55)
[2019-01-16] MEDS ORDERED: LIDOCAINE 2% 5 ML VIAL ONE (16:55)
[2019-01-16] MEDS ORDERED: NEOSTIGMINE 10 MG/10 ML VIAL ONE (16:56)
[2019-01-16] MEDS ORDERED: ROCURONIUM 100 MG/10 ML VIAL IV ONE (16:56)
[2019-01-16] MEDS ORDERED: GLYCOPYRROLATE 0.4 MG/2 ML VIAL ONE (16:56)
[2019-01-16] MEDS ORDERED: ONDANSETRON 4 MG/2 ML VIAL ONE (16:56)
[2019-01-16] MEDS ORDERED: fentaNYL 100 MCG/2 ML VIAL ONE (16:56)
[2019-01-16] MEDS ORDERED: LACTATED RINGERS 1,000 ML IV ONE (16:56)
[2019-01-16] MEDS ORDERED: DEXAMETHASONE 4 MG/1 ML VIAL ONE (16:56)
[2019-01-16] MEDS ORDERED: PHENYLEPHRINE 1 MG/10 ML SYRINGE IV ONE (16:56)
[2019-01-16] MEDS: MORPHINE 4 MG/1 ML VIAL IV PRN (18:07)
[2019-01-16] MEDS: LISINOPRIL 5 MG TABLET PO SCH (18:08)
[2019-01-16] MEDS: metroNIDAZOLE INJ 500 MG in PREMIX 1 EACH IV SCH (18:08)
[2019-01-16] MEDS: ONDANSETRON 4 MG/2 ML VIAL IV PRN (18:48)
[2019-01-16 20:49] LABS: Apearance,Urine CLEAR (Clear); Bilirubin,Urine Negative (Negative); Blood, Urine Small mg/dL (Negative); Glucose,Urine (UA) Negative (Negative); Ketones,Urine Negative (Negative); Mucus,Urine Occasional /LPF (Occasional); Nitrite,Urine Negative (Negative); Protein,Urine Negative; RBC,Urine <1 /HPF (0-4); Squamous Epithelial Cell,Urine Occasional /HPF (0-10); Urine Color Colorless (Yellow); Urine Specific Gravity 1.004 (1.001-1.035); Urine Urobilinogen < 2.0 EU/DL (0.2-1.0); WBC,Urine 1 /HPF (0-6)
[2019-01-16] MEDS: diphenhydrAMINE CAP 25 MG CAPSULE PO PRN (23:58)
[2019-01-17] MEDS: MORPHINE 4 MG/1 ML VIAL IV PRN ×2 (00:07→08:50)
[2019-01-17] MEDS: ONDANSETRON 4 MG/2 ML VIAL IV PRN ×2 (00:07→07:07)
[2019-01-17] MEDS: metroNIDAZOLE INJ 500 MG in PREMIX 1 EACH IV SCH ×3 (00:08→17:07)
[2019-01-17] MEDS: CIPROFLOXACIN INJ 400 MG in PREMIX 1 EACH IV SCH ×2 (03:18→15:08)
[2019-01-17 05:30] LABS: Basophils % 0.2 % (0.0-0.8); Hematocrit 35.4 VOL% (35.7-47.0); Immature Granulocytes % 0.4 %; Immature Granulocytes Absolute 0.05 #; Lymphocytes # 1.5 10*3/uL (1.4-4.0); Lymphocytes % 12.9 % (21.3-54.2); Mean Corpuscular HGB Conc 33.9 GM/DL (32-36); Mean Corpuscular Volume 86.1 FL (87-102); Mean Platelet Volume 9.3 FL (9.6-12.0); Monocytes % 5.2 % (1.7-12.7); Neutrophils % 81.3 % (38.7-73.9); Platelet Count 222 T/CUMM (130-400); Red Blood Count 4.11 MC/CUMM (3.8-5.5); Red Cell Distribution Width 12.1 % (9.3-17.3); White Blood Count 11.3 T/CUMM (4-12)
[2019-01-17 05:55] LABS: Albumin 3.1 G/DL (3.4-5.0); Bilirubin,Total 0.4 MG/DL (0.2-1.0); Calcium 8.8 MG/DL (8.5-10.1); Osmolality,Calculated 279.3 MOS/KG (273-304); Total Protein 6.8 G/DL (6.4-8.3)
[2019-01-17] MEDS: TOLTERODINE LA 4 MG CAPSULE PO SCH ×2 (08:43→21:29)
[2019-01-17] MEDS: LISINOPRIL 5 MG TABLET PO SCH (08:43)
[2019-01-17] MEDS: PROPRANOLOL 40 MG TABLET PO SCH ×2 (08:43→21:29)
[2019-01-17] MEDS: INSULIN LISPRO 100 UNIT/ML SUBCUT SCH ×4 (09:23→21:30)
[2019-01-17] MEDS ORDERED: KETOROLAC 30 MG/1 ML VIAL IV ONE (10:36)
[2019-01-17] MEDS ORDERED: HYDROmorphone 2 MG/1 ML VIAL IV PRN ×2 (10:37)
[2019-01-17] MEDS: diphenhydrAMINE CAP 25 MG CAPSULE PO PRN (15:25)
[2019-01-17] MEDS: KETOROLAC 15 MG/1 ML VIAL IV SCH ×2 (17:08→23:42)
[2019-01-18] MEDS: metroNIDAZOLE INJ 500 MG in PREMIX 1 EACH IV SCH ×3 (00:56→17:22)
[2019-01-18] MEDS: SODIUM CHLOR 0.9% KCL 20 MEQ 20 MEQ/1,000 ML BAG IV SCH ×2 (02:30→15:34)
[2019-01-18] MEDS: CIPROFLOXACIN INJ 400 MG in PREMIX 1 EACH IV SCH ×2 (03:13→15:45)
[2019-01-18] MEDS: KETOROLAC 15 MG/1 ML VIAL IV SCH (04:37)
[2019-01-18 05:32] LABS: Basophils % 0.3 % (0.0-0.8); Eosinophils # 0.1 10*3/uL (0.0-0.87); Eosinophils % 0.8 % (0.00-10.9); Hematocrit 31.8 VOL% (35.7-47.0); Hemoglobin 10.7 GM/DL (12.0-16.0); Immature Granulocytes % 0.3 %; Immature Granulocytes Absolute 0.03 #; Lymphocytes # 3.7 10*3/uL (1.4-4.0); Lymphocytes % 37.2 % (21.3-54.2); Mean Corpuscular HGB Conc 33.6 GM/DL (32-36); Mean Corpuscular Volume 86.2 FL (87-102); Mean Platelet Volume 9.3 FL (9.6-12.0); Monocytes % 7.6 % (1.7-12.7); Neutrophils % 53.8 % (38.7-73.9); Platelet Count 202 T/CUMM (130-400); Red Blood Count 3.69 MC/CUMM (3.8-5.5); Red Cell Distribution Width 12.6 % (9.3-17.3)
[2019-01-18 05:59] LABS: Albumin 2.8 G/DL (3.4-5.0); Bilirubin,Total 1.3 MG/DL (0.2-1.0); Calcium 8.5 MG/DL (8.5-10.1); Osmolality,Calculated 283.1 MOS/KG (273-304); Total Protein 5.9 G/DL (6.4-8.3)
[2019-01-18] MEDS ORDERED: KETOROLAC 30 MG/1 ML VIAL IV PRN (09:00)
[2019-01-18] MEDS: LISINOPRIL 5 MG TABLET PO SCH (09:38)
[2019-01-18] MEDS: PROPRANOLOL 40 MG TABLET PO SCH ×2 (09:38→20:21)
[2019-01-18] MEDS: TOLTERODINE LA 4 MG CAPSULE PO SCH ×2 (09:38→20:21)
[2019-01-18] MEDS: LACTATED RINGERS 1,000 ML IV SCH ×2 (09:39→20:50)
[2019-01-18] MEDS: INSULIN LISPRO 100 UNIT/ML SUBCUT SCH ×4 (09:39→20:21)
[2019-01-18 09:56] LABS: Albumin 3.2 G/DL (3.4-5.0); Bilirubin,Total 0.4 MG/DL (0.2-1.0); Calcium 8.6 MG/DL (8.5-10.1); Osmolality,Calculated 282.3 MOS/KG (273-304); Total Protein 6.7 G/DL (6.4-8.3)
[2019-01-18] MEDS: POTASSIUM CHLORIDE RIDER 10 MEQ in PREMIX 1 EACH IV SCH ×2 (14:01→15:10)
[2019-01-18] MEDS ORDERED: SIMETHICONE CHEW 125 MG TABLET PO PRN (17:00)
[2019-01-19] MEDS: metroNIDAZOLE INJ 500 MG in PREMIX 1 EACH IV SCH ×2 (01:10→10:18)
[2019-01-19] MEDS: SODIUM CHLOR 0.9% KCL 20 MEQ 20 MEQ/1,000 ML BAG IV SCH (01:10)
[2019-01-19] MEDS: CIPROFLOXACIN INJ 400 MG in PREMIX 1 EACH IV SCH (03:15)
[2019-01-19 05:15] LABS: Basophils % 0.3 % (0.0-0.8); Eosinophils # 0.2 10*3/uL (0.0-0.87); Eosinophils % 1.7 % (0.00-10.9); Hematocrit 33.5 VOL% (35.7-47.0); Hemoglobin 11.2 GM/DL (12.0-16.0); Immature Granulocytes % 0.3 %; Immature Granulocytes Absolute 0.03 #; Lymphocytes # 3.6 10*3/uL (1.4-4.0); Lymphocytes % 35.6 % (21.3-54.2); Mean Corpuscular HGB Conc 33.4 GM/DL (32-36); Mean Corpuscular Volume 85.9 FL (87-102); Mean Platelet Volume 9.3 FL (9.6-12.0); Monocytes % 7.8 % (1.7-12.7); Neutrophils % 54.3 % (38.7-73.9); Platelet Count 208 T/CUMM (130-400); Red Cell Distribution Width 12.7 % (9.3-17.3)
[2019-01-19 05:29] LABS: Osmolality,Calculated 290.6 MOS/KG (273-304)
[2019-01-19] MEDS: INSULIN LISPRO 100 UNIT/ML SUBCUT SCH ×2 (07:52→14:25)
[2019-01-19] MEDS: TOLTERODINE LA 4 MG CAPSULE PO SCH (10:18)
[2019-01-19] MEDS: PROPRANOLOL 40 MG TABLET PO SCH (10:18)
[2019-01-19] MEDS: LACTATED RINGERS 1,000 ML IV SCH (10:19)
[2019-01-19] MEDS: ONDANSETRON 4 MG/2 ML VIAL IV PRN (10:23)
[2019-01-19 11:54] VITALS: BP 129/67
== END 2019-01-19 14:00 | disposition home or self-care (01) | DRG 415 ==
LOC: N.3E 12:02 → SUATTDRO 12:02 → N.3E 01-16 12:11
PROVIDERS: ADMIT Family Medicine; ATTEND Family Medicine
PROC: LAPCHOL (2019-01-16 13:03)

== ENCOUNTER 2019-01-30 17:53 | Inpatient (IN) ==
[2019-01-30 19:49] LABS: Basophils % 0.3 % (0.0-0.8); Eosinophils # 0.1 10*3/uL (0.0-0.87); Eosinophils % 0.8 % (0.00-10.9); Hematocrit 40.1 VOL% (35.7-47.0); Hemoglobin 13.6 GM/DL (12.0-16.0); Immature Granulocytes % 0.4 %; Immature Granulocytes Absolute 0.04 #; Lymphocytes # 2.3 10*3/uL (1.4-4.0); Lymphocytes % 22.1 % (21.3-54.2); Mean Corpuscular HGB Conc 33.9 GM/DL (32-36); Mean Corpuscular Volume 85.7 FL (87-102); Mean Platelet Volume 9.4 FL (9.6-12.0); Monocytes % 12.9 % (1.7-12.7); Neutrophils % 63.5 % (38.7-73.9); Platelet Count 304 T/CUMM (130-400); Red Blood Count 4.68 MC/CUMM (3.8-5.5); Red Cell Distribution Width 12.8 % (9.3-17.3); White Blood Count 10.3 T/CUMM (4-12)
[2019-01-30 19:59] LABS: Apearance,Urine CLOUDY (Clear); Bacteria,Urine Occasional /HPF (Few); Bilirubin,Urine Negative (Negative); Blood, Urine Moderate mg/dL (Negative); Glucose,Urine (UA) Negative (Negative); Hyaline Casts,Urine 21 /LPF (0-3); Ketones,Urine Negative (Negative); Mucus,Urine Occasional /LPF (Occasional); Nitrite,Urine Negative (Negative); Protein,Urine 30 MG/DL; RBC,Urine 6 /HPF (0-4); Squamous Epithelial Cell,Urine Many /HPF (0-10); Urine Color Amber (Yellow); Urine Specific Gravity 1.016 (1.001-1.035); Urine Urobilinogen < 2.0 EU/DL (0.2-1.0); WBC,Urine 6 /HPF (0-6)
[2019-01-30 20:05] LABS: Albumin 3.9 G/DL (3.4-5.0); Bilirubin,Total 0.6 MG/DL (0.2-1.0); Calcium 9.4 MG/DL (8.5-10.1); Osmolality,Calculated 283.4 MOS/KG (273-304); Total Protein 8.1 G/DL (6.4-8.3)
[2019-01-30] MEDS ORDERED: LACTATED RINGERS 1,000 ML IV ONE (20:18)
[2019-01-30] MEDS ORDERED: LACTATED RINGERS 2,000 ML IV ONE (21:05)
[2019-01-30] MEDS ORDERED: ACETAMINOPHEN 325 MG TABLET PO PRN (21:13)
[2019-01-30] MEDS: ONDANSETRON 4 MG/2 ML VIAL IV PRN (21:56)
[2019-01-30] MEDS: LACTATED RINGERS 1,000 ML IV SCH (23:02)
[2019-01-31 05:03] LABS: Basophils % 0.3 % (0.0-0.8); Eosinophils # 0.2 10*3/uL (0.0-0.87); Hematocrit 30.2 VOL% (35.7-47.0); Hemoglobin 10.3 GM/DL (12.0-16.0); Immature Granulocytes % 0.2 %; Immature Granulocytes Absolute 0.02 #; Lymphocytes # 2.4 10*3/uL (1.4-4.0); Mean Corpuscular HGB Conc 34.1 GM/DL (32-36); Mean Corpuscular Volume 85.8 FL (87-102); Mean Platelet Volume 9.3 FL (9.6-12.0); Monocytes % 14.3 % (1.7-12.7); Neutrophils % 56.2 % (38.7-73.9); Platelet Count 224 T/CUMM (130-400); Red Blood Count 3.52 MC/CUMM (3.8-5.5); Red Cell Distribution Width 12.6 % (9.3-17.3)
[2019-01-31 05:12] LABS: Calcium 8.4 MG/DL (8.5-10.1); Osmolality,Calculated 291.6 MOS/KG (273-304)
[2019-01-31] MEDS: LACTATED RINGERS 1,000 ML IV SCH ×3 (05:47→18:10)
[2019-01-31] MEDS ORDERED: SODIUM PHOSPHATE ENEMA 133 ML BOTTLE RECTAL ONE (07:45)
[2019-01-31] MEDS ORDERED: MINERAL OIL ENEMA 133 ML BOTTLE RECTAL ONE (07:45)
[2019-01-31] MEDS: PANTOPRAZOLE 40 MG TABLET PO SCH (08:24)
[2019-01-31] MEDS: POTASSIUM CHLORIDE 20 MEQ TABLET PO PRN ×4 (08:57→20:45)
[2019-01-31] MEDS ORDERED: LEVOFLOXACIN INJ 500 MG in PREMIX 1 EACH IV ONE (13:21)
[2019-01-31] MEDS ORDERED: metroNIDAZOLE INJ 500 MG in PREMIX 1 EACH IV ONE (13:21)
[2019-01-31] MEDS: HYDROmorphone 2 MG/1 ML VIAL IV PRN ×2 (15:23→20:44)
[2019-02-01] MEDS: LACTATED RINGERS 1,000 ML IV SCH ×4 (01:15→22:08)
[2019-02-01 04:40] LABS: Basophils % 0.2 % (0.0-0.8); Eosinophils # 0.2 10*3/uL (0.0-0.87); Eosinophils % 1.8 % (0.00-10.9); Hemoglobin 10.3 GM/DL (12.0-16.0); Immature Granulocytes % 0.3 %; Immature Granulocytes Absolute 0.03 #; Lymphocytes # 2.2 10*3/uL (1.4-4.0); Lymphocytes % 24.3 % (21.3-54.2); Mean Corpuscular HGB Conc 33.2 GM/DL (32-36); Mean Corpuscular Volume 86.8 FL (87-102); Mean Platelet Volume 9.3 FL (9.6-12.0); Monocytes % 12.3 % (1.7-12.7); Neutrophils % 61.1 % (38.7-73.9); Platelet Count 225 T/CUMM (130-400); Red Blood Count 3.57 MC/CUMM (3.8-5.5); Red Cell Distribution Width 12.8 % (9.3-17.3); White Blood Count 8.9 T/CUMM (4-12)
[2019-02-01 05:04] LABS: Albumin 2.6 G/DL (3.4-5.0); Bilirubin,Total 0.7 MG/DL (0.2-1.0); Calcium 8.4 MG/DL (8.5-10.1); Total Protein 5.7 G/DL (6.4-8.3)
[2019-02-01] MEDS ORDERED: metroNIDAZOLE INJ 500 MG in PREMIX 1 EACH IV ONE (06:00)
[2019-02-01] MEDS ORDERED: LEVOFLOXACIN INJ 500 MG in PREMIX 1 EACH IV ONE (06:00)
[2019-02-01] MEDS: POTASSIUM CHLORIDE RIDER 10 MEQ in PREMIX 1 EACH IV PRN ×2 (07:28→08:38)
[2019-02-01] MEDS: PANTOPRAZOLE 40 MG TABLET PO SCH (09:00)
[2019-02-01] MEDS ORDERED: ESMOLOL 100 MG/10 ML VIAL IV ONE (11:25)
[2019-02-01] MEDS ORDERED: ALBUMIN 5% 12.5 GM/250 ML VIAL IV ONE ×2 (12:20→13:01)
[2019-02-01] MEDS ORDERED: PROPOFOL 200 MG/20 ML VIAL IV ONE (12:59)
[2019-02-01] MEDS ORDERED: ETOMIDATE 40 MG/20 ML VIAL IV ONE (13:00)
[2019-02-01] MEDS ORDERED: PHENYLEPHRINE 1 MG/10 ML SYRINGE IV ONE (13:00)
[2019-02-01] MEDS ORDERED: ONDANSETRON 4 MG/2 ML VIAL ONE (13:00)
[2019-02-01] MEDS ORDERED: METOPROLOL TARTRATE 5 MG/5 ML VIAL IV ONE (13:00)
[2019-02-01] MEDS ORDERED: fentaNYL 100 MCG/2 ML VIAL ONE (13:00)
[2019-02-01] MEDS ORDERED: LIDOCAINE 2% 5 ML VIAL ONE (13:00)
[2019-02-01] MEDS ORDERED: SEVOFLURANE 1 UNIT/15 MINUTE INH ONE (13:00)
[2019-02-01] MEDS ORDERED: SUCCINYLCHOLINE 200 MG/10 ML VIAL ONE (13:01)
[2019-02-01] MEDS ORDERED: ROCURONIUM 100 MG/10 ML VIAL IV ONE (13:01)
[2019-02-01] MEDS ORDERED: LACTATED RINGERS 1,000 ML IV ONE (13:01)
[2019-02-01] MEDS ORDERED: GLYCOPYRROLATE 0.4 MG/2 ML VIAL ONE (13:07)
[2019-02-01] MEDS ORDERED: NEOSTIGMINE 10 MG/10 ML VIAL ONE (13:07)
[2019-02-01 13:36] LABS: Apearance,Urine CLEAR (Clear); Bilirubin,Urine Negative (Negative); Blood, Urine Small mg/dL (Negative); Glucose,Urine (UA) Negative (Negative); Ketones,Urine 5 mg/dL (Negative); Nitrite,Urine Negative (Negative); Protein,Urine Negative; RBC,Urine 1 /HPF (0-4); Squamous Epithelial Cell,Urine Occasional /HPF (0-10); Urine Color Straw (Yellow); Urine Specific Gravity 1.004 (1.001-1.035); Urine Urobilinogen < 2.0 EU/DL (0.2-1.0); WBC,Urine 1 /HPF (0-6)
[2019-02-01] MEDS ORDERED: ONDANSETRON 4 MG/2 ML VIAL IV PRN (13:37)
[2019-02-01] MEDS ORDERED: HYDROmorphone 2 MG/1 ML VIAL IV PRN (13:37)
[2019-02-01] MEDS: HYDROmorphone 2 MG/1 ML VIAL IV PRN ×4 (13:49→20:20)
[2019-02-01] MEDS ORDERED: MAGNESIUM SULF RIDER 2 GM in PREMIX 1 EACH IV ONE (15:59)
[2019-02-01] MEDS ORDERED: POTASSIUM CHLORIDE RIDER 10 MEQ in PREMIX 1 EACH IV ONE (16:01)
[2019-02-01] MEDS: METHOCARBAMOL INJ 500 MG in SODIUM CHLORIDE 0.9% 100 ML IV SCH (16:25)
[2019-02-02] MEDS: METHOCARBAMOL INJ 500 MG in SODIUM CHLORIDE 0.9% 100 ML IV SCH ×2 (00:03→06:38)
[2019-02-02] MEDS: HYDROmorphone 2 MG/1 ML VIAL IV PRN ×7 (00:09→23:28)
[2019-02-02] MEDS: LACTATED RINGERS 1,000 ML IV SCH ×2 (02:57→11:51)
[2019-02-02] MEDS: PANTOPRAZOLE 40 MG TABLET PO SCH (08:01)
[2019-02-02 08:33] LABS: Basophils % 0.2 % (0.0-0.8); Eosinophils # 0.2 10*3/uL (0.0-0.87); Eosinophils % 1.4 % (0.00-10.9); Hematocrit 32.8 VOL% (35.7-47.0); Hemoglobin 10.9 GM/DL (12.0-16.0); Immature Granulocytes % 0.4 %; Immature Granulocytes Absolute 0.05 #; Lymphocytes # 1.9 10*3/uL (1.4-4.0); Lymphocytes % 15.5 % (21.3-54.2); Mean Corpuscular HGB Conc 33.2 GM/DL (32-36); Mean Corpuscular Volume 88.2 FL (87-102); Mean Platelet Volume 9.2 FL (9.6-12.0); Monocytes % 11.5 % (1.7-12.7); Platelet Count 194 T/CUMM (130-400); Red Blood Count 3.72 MC/CUMM (3.8-5.5); White Blood Count 12.5 T/CUMM (4-12)
[2019-02-02 08:54] LABS: Calcium 8.4 MG/DL (8.5-10.1); Osmolality,Calculated 295.9 MOS/KG (273-304)
[2019-02-02] MEDS ORDERED: diphenhydrAMINE CAP 25 MG CAPSULE ONE (09:30)
[2019-02-02] MEDS: diphenhydrAMINE CAP 25 MG CAPSULE PO PRN ×2 (09:35→19:34)
[2019-02-02] MEDS: METHOCARBAMOL INJ 750 MG in SODIUM CHLORIDE 0.9% 100 ML IV SCH ×2 (09:35→16:07)
[2019-02-02] MEDS: DEXTROSE 5% NACL 0.45% 1,000 ML IV SCH (15:18)
[2019-02-02] MEDS ORDERED: METOPROLOL TARTRATE 5 MG/5 ML VIAL IV ONE (23:38)
[2019-02-02 23:56] LABS: Basophils % 0.2 % (0.0-0.8); Eosinophils # 0.3 10*3/uL (0.0-0.87); Hematocrit 32.9 VOL% (35.7-47.0); Hemoglobin 10.8 GM/DL (12.0-16.0); Immature Granulocytes % 0.5 %; Immature Granulocytes Absolute 0.07 #; Lymphocytes # 2.5 10*3/uL (1.4-4.0); Lymphocytes % 18.3 % (21.3-54.2); Mean Corpuscular HGB Conc 32.8 GM/DL (32-36); Mean Corpuscular Volume 88.9 FL (87-102); Mean Platelet Volume 8.9 FL (9.6-12.0); Monocytes % 12.9 % (1.7-12.7); Neutrophils % 66.1 % (38.7-73.9); Platelet Count 195 T/CUMM (130-400); Red Cell Distribution Width 13.2 % (9.3-17.3); White Blood Count 13.8 T/CUMM (4-12)
[2019-02-02] MEDS ORDERED: ADENOSINE 6 MG/2 ML VIAL IV ONE (23:56)
[2019-02-03 00:16] LABS: Albumin 2.7 G/DL (3.4-5.0); Bilirubin,Total 1.1 MG/DL (0.2-1.0); Calcium 8.7 MG/DL (8.5-10.1); Osmolality,Calculated 298.7 MOS/KG (273-304); Total Protein 5.7 G/DL (6.4-8.3)
[2019-02-03] MEDS: diphenhydrAMINE CAP 25 MG CAPSULE PO PRN (00:52)
[2019-02-03] MEDS: METHOCARBAMOL INJ 750 MG in SODIUM CHLORIDE 0.9% 100 ML IV SCH ×3 (01:39→16:41)
[2019-02-03] MEDS: DEXTROSE 5% NACL 0.45% 1,000 ML IV SCH (02:21)
[2019-02-03] MEDS: LACTATED RINGERS 1,000 ML IV SCH (02:23)
[2019-02-03] MEDS: HYDROmorphone 2 MG/1 ML VIAL IV PRN ×2 (04:38→12:45)
[2019-02-03 05:29] LABS: Basophils % 0.2 % (0.0-0.8); Eosinophils # 0.3 10*3/uL (0.0-0.87); Eosinophils % 2.3 % (0.00-10.9); Hematocrit 31.5 VOL% (35.7-47.0); Hemoglobin 10.7 GM/DL (12.0-16.0); Immature Granulocytes % 0.7 %; Lymphocytes # 1.9 10*3/uL (1.4-4.0); Lymphocytes % 13.8 % (21.3-54.2); Mean Corpuscular Volume 88.2 FL (87-102); Mean Platelet Volume 9.4 FL (9.6-12.0); Monocytes % 12.4 % (1.7-12.7); Neutrophils % 70.6 % (38.7-73.9); Platelet Count 210 T/CUMM (130-400); Red Blood Count 3.57 MC/CUMM (3.8-5.5); Red Cell Distribution Width 13.1 % (9.3-17.3); White Blood Count 13.5 T/CUMM (4-12)
[2019-02-03 05:46] LABS: Calcium 8.5 MG/DL (8.5-10.1)
[2019-02-03] MEDS: POTASSIUM CHLORIDE RIDER 10 MEQ in PREMIX 1 EACH IV PRN ×3 (06:28→14:47)
[2019-02-03] MEDS: PANTOPRAZOLE 40 MG TABLET PO SCH (08:34)
[2019-02-03] MEDS: DEXT 5% NACL 0.45% KCL 20 MEQ 20 MEQ/1,000 ML BAG IV SCH ×2 (15:16→22:48)
[2019-02-03] MEDS: ONDANSETRON 4 MG/2 ML VIAL IV PRN (23:45)
[2019-02-04] MEDS: METHOCARBAMOL INJ 750 MG in SODIUM CHLORIDE 0.9% 100 ML IV SCH ×3 (00:40→17:05)
[2019-02-04] MEDS: DEXT 5% NACL 0.45% KCL 20 MEQ 20 MEQ/1,000 ML BAG IV SCH ×3 (02:48→22:16)
[2019-02-04] MEDS: HYDROmorphone 2 MG/1 ML VIAL IV PRN (04:53)
[2019-02-04] MEDS: diphenhydrAMINE CAP 25 MG CAPSULE PO PRN (05:00)
[2019-02-04 05:44] LABS: Basophils % 0.3 % (0.0-0.8); Eosinophils # 0.4 10*3/uL (0.0-0.87); Eosinophils % 3.5 % (0.00-10.9); Hematocrit 32.9 VOL% (35.7-47.0); Immature Granulocytes % 0.6 %; Immature Granulocytes Absolute 0.06 #; Lymphocytes # 1.9 10*3/uL (1.4-4.0); Lymphocytes % 17.9 % (21.3-54.2); Mean Corpuscular HGB Conc 33.4 GM/DL (32-36); Mean Corpuscular Volume 88.7 FL (87-102); Mean Platelet Volume 9.3 FL (9.6-12.0); Monocytes % 12.8 % (1.7-12.7); Neutrophils % 64.9 % (38.7-73.9); Platelet Count 234 T/CUMM (130-400); Red Blood Count 3.71 MC/CUMM (3.8-5.5); White Blood Count 10.7 T/CUMM (4-12)
[2019-02-04 05:59] LABS: Calcium 8.4 MG/DL (8.5-10.1); Osmolality,Calculated 286.7 MOS/KG (273-304)
[2019-02-04] MEDS: PANTOPRAZOLE 40 MG TABLET PO SCH (08:50)
[2019-02-04] MEDS: METOPROLOL SUCCINATE XL 100 MG TABLET PO SCH (09:04)
[2019-02-04] MEDS ORDERED: MAGNESIUM HYDROXIDE SUSP 30 ML UDCUP PO PRN (16:48)
[2019-02-05] MEDS: METHOCARBAMOL INJ 750 MG in SODIUM CHLORIDE 0.9% 100 ML IV SCH ×3 (00:17→16:26)
[2019-02-05 05:41] LABS: Basophils % 0.2 % (0.0-0.8); Eosinophils # 0.4 10*3/uL (0.0-0.87); Eosinophils % 4.2 % (0.00-10.9); Hematocrit 30.7 VOL% (35.7-47.0); Hemoglobin 10.1 GM/DL (12.0-16.0); Immature Granulocytes % 0.3 %; Immature Granulocytes Absolute 0.03 #; Lymphocytes % 22.7 % (21.3-54.2); Mean Corpuscular HGB Conc 32.9 GM/DL (32-36); Mean Corpuscular Volume 88.5 FL (87-102); Mean Platelet Volume 9.3 FL (9.6-12.0); Monocytes % 11.8 % (1.7-12.7); Neutrophils % 60.8 % (38.7-73.9); Platelet Count 238 T/CUMM (130-400); Red Blood Count 3.47 MC/CUMM (3.8-5.5); Red Cell Distribution Width 12.9 % (9.3-17.3); White Blood Count 8.6 T/CUMM (4-12)
[2019-02-05 05:56] LABS: Calcium 8.3 MG/DL (8.5-10.1); Osmolality,Calculated 285.7 MOS/KG (273-304)
[2019-02-05] MEDS: DEXT 5% NACL 0.45% KCL 20 MEQ 20 MEQ/1,000 ML BAG IV SCH (06:58)
[2019-02-05] MEDS ORDERED: MAGNESIUM SULF RIDER 4 GM in PREMIX 1 EACH IV PRN (07:54)
[2019-02-05] MEDS ORDERED: MAGNESIUM SULF RIDER 2 GM in PREMIX 1 EACH IV PRN (07:54)
[2019-02-05] MEDS: PANTOPRAZOLE 40 MG TABLET PO SCH (08:49)
[2019-02-05] MEDS: METOPROLOL SUCCINATE XL 100 MG TABLET PO SCH (08:49)
[2019-02-05] MEDS: POTASSIUM CHLORIDE 20 MEQ TABLET PO PRN (08:50)
[2019-02-05] MEDS: ONDANSETRON 4 MG/2 ML VIAL IV PRN (08:52)
[2019-02-05] MEDS: diphenhydrAMINE CAP 25 MG CAPSULE PO PRN (12:54)
[2019-02-06] MEDS: METHOCARBAMOL INJ 750 MG in SODIUM CHLORIDE 0.9% 100 ML IV SCH ×2 (00:07→08:36)
[2019-02-06 06:16] LABS: Basophils % 0.4 % (0.0-0.8); Eosinophils # 0.3 10*3/uL (0.0-0.87); Eosinophils % 4.4 % (0.00-10.9); Hematocrit 30.2 VOL% (35.7-47.0); Hemoglobin 9.9 GM/DL (12.0-16.0); Immature Granulocytes % 0.3 %; Immature Granulocytes Absolute 0.02 #; Lymphocytes # 2.1 10*3/uL (1.4-4.0); Lymphocytes % 26.9 % (21.3-54.2); Mean Corpuscular HGB Conc 32.8 GM/DL (32-36); Mean Corpuscular Volume 88.6 FL (87-102); Mean Platelet Volume 9.5 FL (9.6-12.0); Monocytes % 10.2 % (1.7-12.7); Neutrophils % 57.8 % (38.7-73.9); Platelet Count 249 T/CUMM (130-400); Red Blood Count 3.41 MC/CUMM (3.8-5.5); Red Cell Distribution Width 12.7 % (9.3-17.3); White Blood Count 7.7 T/CUMM (4-12)
[2019-02-06 06:54] LABS: Calcium 8.6 MG/DL (8.5-10.1); Osmolality,Calculated 291.1 MOS/KG (273-304)
[2019-02-06] MEDS: PANTOPRAZOLE 40 MG TABLET PO SCH (08:36)
[2019-02-06] MEDS: METOPROLOL SUCCINATE XL 100 MG TABLET PO SCH (08:36)
[2019-02-06] MEDS ORDERED: METHOCARBAMOL 500 MG TABLET PO PRN (13:47)
[2019-02-06] MEDS: ONDANSETRON 4 MG/2 ML VIAL IV PRN (21:35)
[2019-02-07 05:43] LABS: Basophils % 0.4 % (0.0-0.8); Eosinophils # 0.3 10*3/uL (0.0-0.87); Eosinophils % 3.9 % (0.00-10.9); Hematocrit 31.2 VOL% (35.7-47.0); Hemoglobin 10.3 GM/DL (12.0-16.0); Immature Granulocytes % 0.5 %; Immature Granulocytes Absolute 0.04 #; Lymphocytes # 2.1 10*3/uL (1.4-4.0); Lymphocytes % 25.9 % (21.3-54.2); Mean Corpuscular Volume 88.1 FL (87-102); Mean Platelet Volume 9.2 FL (9.6-12.0); Monocytes % 10.1 % (1.7-12.7); Neutrophils % 59.2 % (38.7-73.9); Platelet Count 254 T/CUMM (130-400); Red Blood Count 3.54 MC/CUMM (3.8-5.5); Red Cell Distribution Width 12.6 % (9.3-17.3); White Blood Count 8.2 T/CUMM (4-12)
[2019-02-07 06:14] LABS: Calcium 8.7 MG/DL (8.5-10.1)
[2019-02-07] MEDS: METOPROLOL SUCCINATE XL 100 MG TABLET PO SCH (08:33)
[2019-02-07] MEDS: PANTOPRAZOLE 40 MG TABLET PO SCH (08:34)
[2019-02-07] MEDS: ONDANSETRON 4 MG/2 ML VIAL IV PRN (16:15)
[2019-02-07] MEDS: diphenhydrAMINE CAP 25 MG CAPSULE PO PRN (20:33)
[2019-02-08 05:42] LABS: Basophils % 0.3 % (0.0-0.8); Eosinophils # 0.2 10*3/uL (0.0-0.87); Eosinophils % 2.4 % (0.00-10.9); Hematocrit 30.9 VOL% (35.7-47.0); Hemoglobin 10.3 GM/DL (12.0-16.0); Immature Granulocytes % 0.6 %; Immature Granulocytes Absolute 0.06 #; Lymphocytes % 19.9 % (21.3-54.2); Mean Corpuscular HGB Conc 33.3 GM/DL (32-36); Mean Corpuscular Volume 87.3 FL (87-102); Mean Platelet Volume 8.9 FL (9.6-12.0); Monocytes % 8.9 % (1.7-12.7); Neutrophils % 67.9 % (38.7-73.9); Platelet Count 245 T/CUMM (130-400); Red Blood Count 3.54 MC/CUMM (3.8-5.5); Red Cell Distribution Width 12.4 % (9.3-17.3)
[2019-02-08 06:15] LABS: Calcium 8.1 MG/DL (8.5-10.1); Osmolality,Calculated 279.1 MOS/KG (273-304)
[2019-02-08] MEDS: ONDANSETRON 4 MG/2 ML VIAL IV PRN (06:15)
[2019-02-08] MEDS: PANTOPRAZOLE 40 MG TABLET PO SCH (09:09)
[2019-02-08] MEDS: METOPROLOL SUCCINATE XL 100 MG TABLET PO SCH (09:09)
[2019-02-08] MEDS: POTASSIUM CHLORIDE 20 MEQ TABLET PO PRN ×2 (11:40→13:55)
[2019-02-08] MEDS ORDERED: MAGNESIUM OXIDE 400 MG TABLET PO ONE (12:03)
[2019-02-08 12:37] VITALS: BP 148/66
== END 2019-02-08 15:48 | disposition home or self-care (01) | DRG 336 ==
LOC: N.ED 17:53 → N.EDINP 17:53 → N.3E 21:42 → N.TELEN 02-03 00:11
PROVIDERS: ADMIT Student in an Organized Health Care Education/Training Program; ATTEND Student in an Organized Health Care Education/Training Program